=== PATIENT | male | born 1945 | race Caucasian/White ===

== ENCOUNTER 2023-03-21 05:48 | Observation (INO) ==
[~2023-03-21 05:48] MED LIST: Naloxone 0.4 mg VIAL 0.4 mg/ml 1 ml VIAL IV PRN; Prochlorperazine 5 mg/ml 2 ml VIAL (10 mg) IV PRN; fentaNYL 100 mcg/2 ml 50 MCG/ML VIAL IV PRN
[2023-03-21] MEDS ORDERED: ROPIVACAINE 5 MG/ML 30 ML BTL (0.5%) ONE ×2 (07:14→09:14)
[2023-03-21] MEDS ORDERED: Tranexamic Acid 1 GM/100ML BAG 2,000 MG/200 ML BAG IV ONE (07:31)
[2023-03-21] MEDS ORDERED: Lidocaine 2% PF 5 ML VIAL ONE (07:47)
[2023-03-21] MEDS ORDERED: Phenylephrine IV 10 MG/ML 1 ml VIAL ONE (07:47)
[2023-03-21 07:50] LABS: Rapid COVID-19 Molecular Undetected (Undetected)
[2023-03-21] MEDS ORDERED: ceFAZolin *3* GM in NS PREMIX 3 GM/100 ML BAG IV ONE (08:01)
[2023-03-21] MEDS ORDERED: Metoprolol Tartrate 5 mg VIAL 5 ml VIAL (1 mg/ml) ONE (08:11)
[2023-03-21] MEDS ORDERED: Rocuronium 50 mg VIAL 10 mg/ml 5 ml VIAL (50 mg) ONE (08:48)
[2023-03-21 08:53] LABS: Albumin 3.8 g/dL (3.2-5.2); Albumin/Globulin Ratio 1.2 (1-3); Calcium 9.1 mg/dL (8.6-10.3); Creatinine, Serum 1.07 mg/dL (0.67-1.17); Globulin 3.2 g/dL (2-4); Magnesium 1.8 mg/dL (1.9-2.7); Potassium 4.1 mmol/L (3.5-5.0); Total Bilirubin 0.5 mg/dL (0.2-1.0); eGFR CKD-EPI 71.9 (>60)
[2023-03-21] MEDS ORDERED: fentaNYL 100 mcg/2 ml 50 MCG/ML VIAL ONE ×2 (09:10→10:57)
[2023-03-21] MEDS ORDERED: Midazolam 2 mg/2 ml VIAL 1 mg/ml 2 ml VIAL (2 mg) ONE ×2 (09:10→10:44)
[2023-03-21] MEDS ORDERED: Propofol 10 MG/ML 20 ML BTL ONE ×3 (10:07→11:33)
[2023-03-21] MEDS ORDERED: Ondansetron 4 mg VIAL 2 MG/ML 2 ml VIAL ONE (10:18)
[2023-03-21] MEDS ORDERED: Dexamethasone IV 4 MG/ML VIAL 1 ml VIAL ONE (10:18)
[2023-03-21] MEDS ORDERED: Magnesium Hydroxide LIQ 30 ML UDC PO PRN (10:40)
[2023-03-21] MEDS ORDERED: Morphine 2 MG/ML SYRINGE IV PRN (10:40)
[2023-03-21] MEDS ORDERED: Lactulose 30 ml UDC PO PRN (10:40)
[2023-03-21] MEDS ORDERED: Ondansetron ODT 4 mg TAB 4 MG TAB PO PRN (10:40)
[2023-03-21] MEDS ORDERED: Ondansetron 4 mg VIAL 2 MG/ML 2 ml VIAL IV PRN (10:40)
[2023-03-21] MEDS ORDERED: Acetaminophen IV 1 GM/100ML 1,000 MG/100 ML BAG IV ONE (11:01)
[2023-03-21] MEDS ORDERED: Magnesium Sulfate IV 0.5 GM/ML 2 ml VIAL (1 gm) ONE (12:21)
[2023-03-21] MEDS: Lactated Ringers 1000 ml BAG 1,000 ML IV SCH ×2 (14:14→14:24)
[2023-03-21] MEDS: Buffered Lidocaine 1% SYRIN 1 ml INTRADERM ONE (14:24)
[2023-03-21] MEDS: ceFAZolin 1 GM ADVAN 1 GM in NS 0.9% 50 ML 50 ML IVPB SCH (17:57)
[2023-03-21] MEDS: Magnesium Hydroxide LIQ 30 ML UDC PO SCH (20:57)
[2023-03-22 06:08] VITALS: BP 141/83
[2023-03-22 06:13] LABS: Hematocrit 37.4 % (38-53); Hemoglobin 12.6 g/dL (13.2-16.3); Mean Platelet Volume 10.8 fL (7.5-11.2); Platelet Count 200 10^3/uL (150-450)
[2023-03-22 06:42] LABS: Calcium 8.4 mg/dL (8.6-10.3); Creatinine, Serum 1.11 mg/dL (0.67-1.17); Potassium 4.3 mmol/L (3.5-5.0); eGFR CKD-EPI 68.8 (>60)
[2023-03-22] MEDS: Aspirin EC 81 mg TAB.EC (enteric coated) PO SCH (09:46)
[2023-03-22] MEDS: Vitamin THERAPEUTIC TAB PO SCH (09:47)
[2023-03-22] MEDS: Magnesium Sulfate IV 1GM/100ML 1 GM/100 ML BAG IV ONE (09:59)
== END 2023-03-22 16:20 | disposition home or self-care (01) ==
LOC: INTOOBSV 05:48 → AA 05:48 → SSU 10:40
PROVIDERS: ADMIT Orthopaedic Surgery Adult Reconstructive Orthopaedic Surgery; ATTEND Orthopaedic Surgery Adult Reconstructive Orthopaedic Surgery

== ENCOUNTER 2023-10-10 09:10 | Inpatient (IN) ==
[~2023-10-10 09:10] MED LIST changes: -Prochlorperazine 5 mg/ml 2 ml VIAL (10 mg) IV PRN
[2023-10-10] MEDS ORDERED: fentaNYL 100 mcg/2 ml 50 MCG/ML VIAL ONE (10:08)
[2023-10-10] MEDS: Buffered Lidocaine 1% SYRIN 1 ml INTRADERM ONE (10:08)
[2023-10-10] MEDS ORDERED: Midazolam 2 mg/2 ml VIAL 1 mg/ml 2 ml VIAL (2 mg) ONE (10:08)
[2023-10-10] MEDS ORDERED: Lidocaine 2% PF 5 ML VIAL ONE (10:13)
[2023-10-10] MEDS ORDERED: Phenylephrine IV 10 MG/ML 1 ml VIAL ONE (10:21)
[2023-10-10] MEDS ORDERED: ceFAZolin 2 GM PREMIX 2 GM/50 ML BAG ONE (10:28)
[2023-10-10] MEDS ORDERED: Tranexamic Acid 1 GM/100ML BAG 2,000 MG/200 ML BAG IV ONE (10:28)
[2023-10-10] MEDS ORDERED: ceFAZolin 1 GM in Dextrose 1 GM/50 ML BAG ONE (10:28)
[2023-10-10 10:29] LABS: Rapid COVID-19 Molecular Undetected (Undetected)
[2023-10-10] MEDS ORDERED: Acetaminophen IV 1 GM/100ML 0 MG/0 ML BAG IV ONE (10:33)
[2023-10-10] MEDS ORDERED: Midazolam 5 mg/5 ml VIAL 1 mg/ml 5 ml VIAL (5 mg) ONE (10:41)
[2023-10-10] MEDS ORDERED: ROPIVACAINE 5 MG/ML 30 ML BTL (0.5%) ONE ×3 (10:46→12:36)
[2023-10-10] MEDS ORDERED: Phenylephrine 40 mcg/mL 10mL (400mcg) SYRINGE ONE (13:13)
[2023-10-10] MEDS ORDERED: Ondansetron 4 mg VIAL 2 MG/ML 2 ml VIAL ONE (13:13)
[2023-10-10] MEDS ORDERED: Dexamethasone IV 4 MG/ML VIAL 1 ml VIAL ONE (13:13)
[2023-10-10] MEDS ORDERED: Propofol 10 MG/ML 20 ML BTL ONE ×2 (13:43→14:17)
[2023-10-10] MEDS ORDERED: Levalbuterol HFA INHALER MDI ONE (15:00)
[2023-10-10] MEDS ORDERED: KETAMINE HCL 10 MG/ML 20 ml VIAL (200 MG) ONE (15:00)
[2023-10-10] MEDS ORDERED: Lactulose 30 ml UDC PO PRN (15:46)
[2023-10-10] MEDS ORDERED: Calcium Carb (TUMS) 500 mg CHEW TAB PO PRN (15:46)
[2023-10-10] MEDS ORDERED: Ondansetron ODT 4 mg TAB 4 MG TAB PO PRN (15:46)
[2023-10-10] MEDS ORDERED: Ondansetron 4 mg VIAL 2 MG/ML 2 ml VIAL IV PRN (15:46)
[2023-10-10] MEDS ORDERED: Morphine 2 MG/ML SYRINGE IV PRN (15:46)
[2023-10-10] MEDS ORDERED: Magnesium Hydroxide LIQ 30 ML UDC PO PRN (15:46)
[2023-10-10] MEDS: Lactated Ringers 1000 ml BAG 1,000 ML IV SCH ×2 (17:21→18:12)
[2023-10-10] MEDS: Benzocaine/Menthol LOZ MT PRN (19:46)
[2023-10-10] MEDS: Magnesium Hydroxide LIQ 30 ML UDC PO SCH (20:51)
[2023-10-10] MEDS ORDERED: ceFAZolin *3* GM in NS PREMIX 3 GM/100 ML BAG IV SCH (21:00)
[2023-10-10] MEDS: ceFAZolin 2 GM PREMIX 2 GM/50 ML BAG IV SCH (22:56)
[2023-10-10] MEDS: ceFAZolin 1 GM in Dextrose 1 GM/50 ML BAG IVPB SCH (23:45)
[2023-10-11 07:42] LABS: Hematocrit 40.8 % (38-53); Hemoglobin 13.3 g/dL (13.2-16.3); Mean Platelet Volume 10.7 fL (7.5-11.2); Platelet Count 175 10^3/uL (150-450)
[2023-10-11 07:53] LABS: Calcium 8.2 mg/dL (8.6-10.3); Creatinine, Serum 1.39 mg/dL (0.67-1.17); Potassium 4.6 mmol/L (3.5-5.0); eGFR CKD-EPI 52.2 (>60)
[2023-10-11] MEDS: CMCS: Pravastatin 20 mg TAB (NF) PO SCH (08:11)
[2023-10-11] MEDS: Vitamin THERAPEUTIC TAB PO SCH (08:12)
[2023-10-11] MEDS ORDERED: Lisinopril/HCTZ 20/12.5 TB(NF) PO SCH (09:00)
[2023-10-11] MEDS: Fluticasone NASAL SPRAY 50MCG 16 gm SPRAY BTL INTRANASAL SCH (10:53)
[2023-10-11 14:13] VITALS: BP 104/79
== END 2023-10-11 15:15 | disposition home or self-care (01) | DRG 470 ==
LOC: OR 09:10 → SSU 09:10 → OBSVTOIN 17:16
PROVIDERS: ADMIT Orthopaedic Surgery Adult Reconstructive Orthopaedic Surgery; ATTEND Orthopaedic Surgery Adult Reconstructive Orthopaedic Surgery